=== PATIENT | female | born 1980 | race Caucasian/White ===

== ENCOUNTER → 2023-07-13 15:11 | Outpatient (REF) | payer OTHER, SELFPAY | LOC: HWWDC 15:11 | PROVIDERS: ATTENDING PHYSICIAN Obstetrics & Gynecology; FAMILY PHYSICIAN Family Medicine | DX: Z12.31 Encounter for screening mammogram for malignant neoplasm of breast (principal) | CPT/HCPCS: 77063; 77067 ==

== ENCOUNTER 2023-07-31 20:54 | Emergency (ER) | payer OTHER, SELFPAY ==
[2023-07-31 20:54] VITALS: BMI 35.1
[2023-07-31 20:56] VITALS: BP 170/120
[2023-07-31 22:10] LABS: % Basophils 0.4 % (0-2); % Eosinophils 0.4 % (0-6); % Immature Granulocytes 0.3 % (0-0.5); % Lymphocytes 19.9 % (20.5-51.1); % Monocytes 4.2 % (1.7-9.3); % Neutrophils 74.8 % (42.2-75.2); Absolute Lymphocytes 1.5 10^3/uL (1.2-3.4); Absolute Monocytes 0.3 10^3/uL (0.1-0.6); Absolute Neutrophils 5.7 10^3/uL (1.4-6.5); Hematocrit 37.6 % (37.0-47.0); Hemoglobin 13.3 g/dL (12.0-16.0); Mean Corp Hgb Conc. 35.4 g/dL (33.0-37.0); Mean Corpuscular Hgb 28.5 pg (27.0-31.0); Mean Corpuscular Volume 80.5 fL (81.0-99.0); Mean Platelet Volume 9.4 fL (7.4-10.4); Nucleated Red Blood Cells % 0 %; Platelet Count 228 10^3/uL (130-400); Red Blood Cell Count 4.67 10^6/uL (4.20-5.40); White Blood Cell Count 7.6 10^3/uL (4.8-10.8)
[2023-07-31] MEDS: NSS 1000 IV (22:10)
[2023-07-31] MEDS: REGLAN 10 MG IV (22:10)
[2023-07-31] MEDS: BENADRYL 25 MG IV (22:10)
[2023-07-31] MEDS: OFIRMEV 100 IV (22:11)
[2023-07-31 22:15] VITALS: BP 136/86
[2023-07-31 22:19] LABS: HCG, Serum Qualitative Screen Negative
[2023-07-31 22:23] LABS: Blood Urea Nitrogen 13 mg/dl (7-17); Calcium 9.3 mg/dl (8.4-10.2); Carbon Dioxide 23 mmol/L (22-30); Chloride 104 mmol/L (98-107); Estimated Creatinine Clearance 91 ml/min; Glucose 93 mg/dl (70-99); Potassium 3.8 mmol/L (3.5-5.1); Sodium 136 mmol/L (135-145); eGFR > 60.00
[2023-07-31 23:05] VITALS: BP 132/75
--- NOTE | 2023-07-31 23:10 | ED.GENMED ---
History of Present Illness
General
Chief Complaint: Headache
Source: patient
Exam Limitations: none
Time Seen by Provider: 07/31/23 21:29
Travel History
Have you had any contact with someone who has COVID-19?: No
Do you have any symptoms of coronavirus? Fever > 100 degrees, chills, cough, shortness of breath, sore throat, loss of taste or smell, muscle aches, or headache?: No
History of Present Illness
History of Present Illness:
43-year-old female complaining of right-sided headache right frontal right temporal. Associated with nausea and vomiting. Also photophobia. No fever no neurologic symptoms. She has had the symptoms intermittently for about 5 years. Usually they
are somewhat related to her menses. Typically last 2 to 3 days. She is currently on day 2 however symptoms are progressing. She has not had to go to an urgent care once before for similar type headache that resolved with treatment.
Past History
Past History
ED Past Medical History: Other (Migraines)
ED Past Surgical History:
Social History
Alcohol: None
Phy Exam
Physical Exam
Physical Exam:
GENERAL: Alert and oriented in no apparent distress
EYE: Orbits normal. Extraocular muscles intact
NECK: Supple, nontender
ENT: Pharynx without erythema
CARDIAC: Regular rate and rhythm without any obvious murmurs.
LUNGS: Clear breath sounds,normal
ABDOMEN: Soft, without focal tenderness or distention
NEUROLOGICAL: Alert and oriented , grossly non-focal. Speech normal. Cranial nerves II through XII intact.
SKIN: Warm and dry, no rash or lesion, no discoloration, skin intact.
MUSCULOSKELETAL: No edema,no deformity.Good color
PSYCH: Normal and appropriate interaction.
Course
Orders/Labs/Results
Orders:
Orders
07/31/23 21:37
CT Head W/o Iv Contrast Urgent
Comment:
Reason For Exam: Right frontal headache
IV Insert/Care/Rem.- Treatment PRN
0.9% Sodium Chloride 1000 ml [Nss] 1,000 ml IV BOLUS
Acetaminophen 1000MG/100Ml [Ofirmev] 1,000 mg in 100 ml IV ONCE
Acetaminophen IV Indication:: ED Narcotic Naive Pt-ONCE
Diphenhydramine [Benadryl] 25 mg IV NOW STA
Metoclopramide [Reglan] 10 mg IV NOW STA
07/31/23 21:38
Test Result ONCE
07/31/23 22:00
Basic Metabolic Panel Urgent
Complete Blood Count/With Diff Urgent
HCG, Serum Qualitative Screen Urgent
07/31/23 23:10
Ketorolac [Toradol] 15 mg IV NOW STA
Abnormal Lab Results
07/31/23
22:00
MCV 80.5 L fL
(81.0-99.0)
Lymphocytes % 19.9 L %
(20.5-51.1)
07/31/23 22:00
07/31/23 22:00
Vital Signs
Initial and Last Documented VS:
Initial Vital Signs
Temp Pulse Resp BP Pulse Ox
97.8 F 86 18 170/120 98
07/31/23 20:56 07/31/23 20:56 07/31/23 20:56 07/31/23 20:56 07/31/23 20:56
Last Documented Vital Signs
Temp Pulse Resp BP Pulse Ox
97.8 F 86 18 134/77 98
07/31/23 20:56 07/31/23 20:56 07/31/23 20:56 08/01/23 00:00 08/01/23 00:00
MDM/Problems Addressed
Differential Diagnosis Includes:
Symptoms most consistent with migraine. Long history of same. Headache feels similar but just more severe than typical. Head CT was done for completeness. Neurologically stable.
*Radiology
Radiology exam reviewed: radiology read reviewed (Negative head CT)
*Pulse Oximetry
Patient hypoxic: no
*Critical Care Note
Total Time (30-74mins, 75-104mins- exclusive of procedures): Not Applicable
Update Note
Update Note:
Patient feeling much better. Stable for discharge to follow-up
ED Attending Note
-
Portions of this chart may have been created with voice recognition software.� Occasional wrong word or��sound alike� substitutions may have occurred due to the inherent limitations of voice recognition software.
Discharge Plan
Departure
Patient Disposition: Home (Routine Discharge)
Date of Disposition: 08/01/23
Time of Disposition: 00:09
Patient with high blood pressure during this ER visit?: Yes
Discharge Problem:
Acute migraine headache
Instructions: Migraines (DC), Headache, Adult (DC), BLOOD PRESSURE
Prescriptions:
No Action
Vitamin Tablet
1 tab PO DAILY
Diclegis Dr 10-10 mg Tablet
2 tablets PO HS
oxycodone-acetaminophen 5 MG/325 MG tablet
1 tab PO Q3HPRN PRN (Reason: moderate pain) Qty: 8 0RF
ibuprofen 600 MG tablet
600 mg PO Q4HPRN PRN (Reason: moderate pain/cramps) Qty: 40 0RF
Referrals:
Cheryl Yepez, DO [Family Provider] - Follow up in 2-3 days
Interventions
Interventions:
*Risk Screen - Suicide Last Done: 07/31/23 20:56
*Neglect/Abuse Screening Last Done: 07/31/23 20:56
ED- Fall Risk Assessment Last Done: 07/31/23 21:25
*Nursing Disposition Last Done: 08/01/23 00:18
ED- Neurological Assessment Last Done: 07/31/23 21:25
Discharge Date and Time
Discharge Date/Time: 08/01/23 00:19
Print Language: JORDANIAN
[2023-07-31] MEDS: TORADOL 15 MG IV (23:15)
[2023-08-01] VITALS: BP 134/77
== END 2023-08-01 00:19 | disposition home or self-care (01) ==
LOC: EMR 20:54
PROVIDERS: EMERGENCY PHYSICIAN Emergency Medicine; FAMILY PHYSICIAN Family Medicine
DX: G43.909 Migraine, unspecified, not intractable, without status migrainosus (principal)
CPT/HCPCS: 99284; 70450; 80048; 84703; 85025

== ENCOUNTER → 2024-07-29 07:57 | Outpatient (REF) | payer OTHER, SELFPAY | LOC: HWWDC 07:57 | PROVIDERS: ATTENDING PHYSICIAN Advanced Practice Midwife | DX: Z12.31 Encounter for screening mammogram for malignant neoplasm of breast (principal) | CPT/HCPCS: 77063; 77067 ==